=== PATIENT | male | born 1970 | race Two or more races ===

== ENCOUNTER 2019-02-09 21:53 | Inpatient (IN) | payer OTHER ==
[~2019-02-09] VITALS: Ht 152.4 cm; Wt 81.6 kg
[2019-02-10] MEDS ORDERED: HYDROcodone-ACET 10/325MG TAB PO PRN (02:00)
[2019-02-10 03:00] VITALS: BP 105/73
--- NOTE | 2019-02-10 03:00 | NUR ---
RECEIVED PATIENT FROM ED VIA WHEELCHAIR. PATIENT IS AWAKE BUT DOES NOT WANT TO TALK. PATIENT IS NOT FULLY COOPERATIVE. NO S/S OF DISTRESS, DOES NOT COMPLAIN OF PAIN. WITH MULTIPLE CONTUSION IN THE HEAD AND FACE. WITH ABRASIONS ON THE FOREHEAD AND CHIN. ORIENTED ON PLAN OF CARE. BED IS LOCKED AND IN LOWEST POSITION, SIDE RAILS UP X2, CALL LIGHT WITHIN REACH. WILL CONTINUE TO MONITOR Addendum: 02/10/19 at 0638 by LILLIAN JEWELL RN WITH ABRASION ALSO ON THE RIGHT CHEEK
--- NOTE | 2019-02-10 03:10 | NUR ---
PATIENT HAS NO IV ACCESS, [facility]ARDS SAID BECAUSE PATIENT WAS UNCOOPERATIVE IN ER
[2019-02-10 03:36] VITALS: BP 105/73
--- NOTE | 2019-02-10 05:40 | NUR ---
PHOTOS TAKEN OF ABRASIONS ON THE FOREHEAD, RIGHT CHEEK AND CHIN
--- NOTE | 2019-02-10 05:45 | NUR ---
[facility] NASAL SWAB SAMPLE SENT TO LAB
--- NOTE | 2019-02-10 06:56 | NUR ---
IV insertion IV access obtained, via clean sterile technique by inserting 20 gauge catheter at RIGHT AC after 1 attempt. IV secured properly. No trauma to site. Patient tolerated well.
--- NOTE | 2019-02-10 07:06 | NUR ---
CARE ENDORSED TO AM SHIFT RN
[2019-02-10 09:00] VITALS: BP 99/59
[2019-02-10 10:06] LABS: Basophils # (auto) 0 uL; Basophils % (auto) 0.5 % (0.0-2.0); Eosinophils # (auto) 0.3 uL; Hematocrit 47.1 % (41.0-53.0); Hemoglobin 15.5 g/dL (13.5-17.5); Lymphocytes # (auto) 1.3 uL; Mean Corpuscular Hemoglobin 28.3 pg (28.0-32.0); Monocytes # (auto) 0.6 uL; Monocytes % (auto) 7.9 % (0.0-12.0); Neutrophils # (auto) 5.6 uL; Neutrophils % (auto) 70.6 % (37.0-80.0); Nucleated Red Blood Cells % 0.1 %; Platelet Count (auto) 229 10^3/uL (140-450); Red Blood Cells 5.48 10^6/uL (4.5-5.90); Red Cell Distribution Width 13.4 % (11.8-14.3); White Blood Cell 7.9 10^3/uL (4.4-10.8)
[2019-02-10 13:00] VITALS: BP 99/60
== END 2019-02-10 16:10 | DRG 605 ==
LOC: EEVIPCON 21:56 → ER 21:56 → OVERFLOW 21:57 → EAST 02-10 02:38
PROVIDERS: ADMIT Internal Medicine; ATTEND Internal Medicine
DX: S00.93XA Contusion of unspecified part of head, initial encounter (principal); Y08.89XA Assault by other specified means, initial encounter; S20.20XA Contusion of thorax, unspecified, initial encounter; S06.0X0A Concussion without loss of consciousness, initial encounter; Y93.89 Activity, other specified; Y92.89 Other specified places as the place of occurrence of the external cause; Y99.8 Other external cause status
CPT/HCPCS: 36415; 70450; 72125; 85025; 87081; G0378